=== PATIENT | female | born 1985 | race African-American/Black ===

== ENCOUNTER 2020-09-03 19:13 | Emergency (ER) | payer BC ==
[2020-09-03 19:19] VITALS: TEMP 97; BMI 45.5
[2020-09-03] MEDS ORDERED: LACTATED RINGERS SOLUTION 1000 ML INFUS.BAG IV ONE (19:46)
[2020-09-03] MEDS ORDERED: ACETAMINOPHEN 325 MG TABLET (FP) PO ONE (19:46)
[2020-09-03] MEDS ORDERED: ONDANSETRON 4 MG/2 ML VIAL IVPUSH ONE (19:46)
[2020-09-03] MEDS ORDERED: ACETAMINOPHEN 325 MG TABLET (FP) ONE (20:27)
[2020-09-03] MEDS ORDERED: ONDANSETRON 4 MG/2 ML VIAL ONE (20:27)
[2020-09-03 20:44] LABS: BASO % 0.3 % (0-2.0); EOS % 0.7 % (0-4.5); HEMATOCRIT 37.1 % (32.4-45.2); HEMOGLOBIN 12.2 GM/dL (10.7-15.3); LYMPH % 24.6 % (8-40); MCH 31.5 pg (25.7-33.7); MCHC 32.8 g/dl (32.0-36.0); MEAN PLT VOLUME 8.1 fl (7.5-11.1); NEUT % 71.4 % (42.8-82.8); PLATELET COUNT 328 K/MM3 (134-434); RBC 3.87 M/mm3 (3.60-5.2); RDW 13.1 % (11.6-15.6); WHITE BLOOD COUNT 12.4 K/mm3 (4.0-10.0)
[2020-09-03 20:46] LABS: PH,URINE 5.5 (5.0-8.0); URINE APPEARANCE CLOUDY; URINE BILIRUBIN NEGATIVE (NEGATIVE); URINE COLOR YELLOW; URINE GLUCOSE (UA) NEGATIVE (NEGATIVE); URINE KETONE TRACE (NEGATIVE); URINE LEUK ESTERASE NEGATIVE (NEGATIVE); URINE NITRITE NEGATIVE (NEGATIVE); URINE PROTEIN NEGATIVE (NEGATIVE)
[2020-09-03 20:51] LABS: INR 0.99 (0.83-1.09); PROTHROMBIN TIME (PATIENT) 12.2 SEC (9.7-13.0)
[2020-09-03 20:54] LABS: ACTIVATED PTT 29.2 SECONDS (25.2-36.5)
[2020-09-03 20:56] LABS: HCG,QUALITATIVE URINE Negative
[2020-09-03 21:00] LABS: POTASSIUM 3.6 mmol/L (3.5-5.1)
[2020-09-03 21:02] LABS: ALBUMIN 3.8 g/dl (3.4-5.0); BLOOD UREA NITROGEN 7.3 mg/dL (7-18); CALCIUM 9.2 mg/dL (8.5-10.1); MAGNESIUM 1.5 mg/dL (1.8-2.4)
[2020-09-03 21:06] LABS: CREATININE 0.7 mg/dL (0.55-1.3)
[2020-09-03 21:07] LABS: BILIRUBIN,TOTAL 0.3 mg/dL (0.2-1); TOT PROT 7.3 g/dl (6.4-8.2)
[2020-09-03] MEDS ORDERED: IBUPROFEN 600 MG TABLET (FP) PO ONE ×2 (23:10→23:56)
[2020-09-04 00:03] VITALS: BP 134/84; PULSE 75
== END 2020-09-04 00:12 | disposition home or self-care (01) ==
LOC: JER 19:13
PROC: 3E033NZ Introduction of Analgesics, Hypnotics, Sedatives into Peripheral Vein, Percutaneous Approach (ICD-10-PCS; principal; 2020-09-03)
DX: N83.209 Unspecified ovarian cyst, unspecified side (principal); R74.01 Elevation of levels of liver transaminase levels; R10.32 Left lower quadrant pain
CPT/HCPCS: 36415; 74177-TC; 76830-TC; 80053; 81003; 83735; 84703; 85025; 85610; 85730; 87086; 99285-25; Q9967

== ENCOUNTER 2020-11-13 01:26 | Emergency (ER) | payer BC ==
[2020-11-13 01:37] VITALS: BP 142/91; PULSE 84; TEMP 97.6; BMI 41.5
[2020-11-13] MEDS ORDERED: ACETAMINOPHEN 325 MG TABLET (FP) PO ONE (01:42)
[2020-11-13] MEDS ORDERED: ACETAMINOPHEN 325 MG TABLET (FP) ONE (02:52)
== END 2020-11-13 02:55 | disposition home or self-care (01) ==
LOC: JER 01:26
PROC: 0HQ0XZZ Repair Scalp Skin, External Approach (ICD-10-PCS; principal; 2020-11-13)
DX: S01.81XA Laceration without foreign body of other part of head, initial encounter (principal)
CPT/HCPCS: 99282-25

== ENCOUNTER 2020-11-19 14:54 | Emergency (ER) | payer BC ==
[2020-11-19 15:05] VITALS: BP 136/86; PULSE 92; TEMP 97.9; BMI 44.9
== END 2020-11-19 15:21 | disposition home or self-care (01) ==
LOC: JERFT 14:54
DX: Z48.02 Encounter for removal of sutures (principal)
CPT/HCPCS: 99281-25